=== PATIENT | female | born 2000 | race Caucasian/White ===

== ENCOUNTER 2019-06-22 01:52 | Inpatient (IN) ==
[2019-06-22 02:34] LABS: Bilirubin,Urine Negative (Negative); Blood,Urine Negative (Negative); Clarity,Urine Clear (Clear); Color,Urine Yellow (Yellow); Glucose,Urine (UA) Normal (Normal); Ketones,Urine Negative (Negative); Leukocyte Esterase,Urine Small (Negative); Nitrite,Urine Negative (Negative); Protein,Urine Negative (Neg-Trace); Specific Gravity,Urine > 1.030 (1.010-1.025); Urobilinogen,Urine Normal (Normal)
[2019-06-22 02:37] LABS: Bacteria,Urine Moderate per hpf (None-Few); Hyaline Casts,Urine None Seen per lpf (None-Few); Squamous Epithelial Cell,Urine Many per lpf (None-Few); WBC,Urine 15-30 per hpf (0-3)
[2019-06-22 02:44] LABS: Amphetamine Screen,Urine Negative ng/mL (Cutoff=1000); Barbiturate Screen,Urine Negative ng/mL (Cutoff=200); Benzodiazepines Screen,Urine Negative ng/mL (Cutoff=200); Cannabinoid Screen,Urine Negative ng/mL (Cutoff = 50); Cocaine Screen,Urine Negative ng/mL (Cutoff= 300); Opiate Screen,Urine Negative ng/mL (Cutoff=300); Phencyclidine Screen,Urine Negative ng/mL (Cutoff=25)
[2019-06-22 02:59] LABS: Basophils % 0.2 %; Eosinophils # 0.4 K/mcL (0.0-0.6); Eosinophils % 2.7 %; Hemoglobin 12.6 g/dL (11.5-15.4); Immature Granulocytes % 0.3 % (0-4); Immature Platelets 1.5 % (1.1-6.1); Lymphocytes # 2.5 K/mcL (0.6-4.6); Lymphocytes % 19.7 %; Mean Corpuscular HGB Conc 32.3 g/dL (31.6-35.5); Mean Corpuscular Hemoglobin 25.7 pg (28.0-33.3); Mean Corpuscular Volume 79.4 fL (83.0-100.0); Monocytes # 0.7 K/mcL (0.0-1.3); Monocytes % 5.2 %; Neutrophils # 9.2 K/mcL (1.6-8.9); Platelet Count 454 K/mcL (140-400); Red Blood Count 4.91 M/mcL (3.82-4.97); Red Cell Distribution Width 13.9 % (11.5-14.5); Segmented Neutrophils % 71.9 %; White Blood Count 12.8 K/mcL (4.3-11.1)
[2019-06-22 03:57] LABS: Acetaminophen < 10 mcg/mL (10-20); BUN/Creatinine Ratio 18 (6-26); Blood Urea Nitrogen 14 mg/dL (6-20); Calcium 9.7 mg/dL (8.6-10.3); Carbon Dioxide 24 mEq/L (23-29); Chloride 104 mEq/L (98-107); Ethanol < 10 mg/dL (Less than 10); Glucose 116 mg/dL (70-105); Osmolality,Calculated 281 (280-300); Potassium 3.8 mEq/L (3.5-5.1); Salicylate < 2.5 mg/dL (15.0-30.0); Sodium 135 mEq/L (136-145); eGFR For African Americans > 60; eGFR For Non-African Americans > 60
[2019-06-22] MEDS ORDERED: Haloperidol Lactate 5 MG/ML VIAL IM PRN (06:06)
[2019-06-22] MEDS ORDERED: MOM Conc 10 ML UD.LIQ PO PRN (06:06)
[2019-06-22] MEDS ORDERED: Mag Hydrox/Al Hydrox/Simeth 30 ML UDC PO PRN (06:06)
[2019-06-22] MEDS ORDERED: *HR* LORazepam 1 MG TABLET PO PRN (06:06)
[2019-06-22] MEDS ORDERED: Ibuprofen 400 MG TABLET PO PRN (06:06)
[2019-06-22] MEDS ORDERED: *HR* LORazepam 2 MG/ML VIAL IM PRN (06:06)
[2019-06-22 13:28] LABS: Thyroid Stimulating Hormone 4.782 mcIU/mL (0.340-5.600)
[2019-06-22 13:34] LABS: Triiodothyronine (T3) Total 1.33 ng/mL (0.87-1.78)
[2019-06-22] MEDS: hydrOXYzine pamoate 25 MG CAPSULE PO PRN (20:28)
[2019-06-22] MEDS: traZODone 50 MG TABLET PO PRN (20:28)
[2019-06-23] MEDS: hydrOXYzine pamoate 25 MG CAPSULE PO PRN (20:25)
[2019-06-23] MEDS: traZODone 50 MG TABLET PO PRN (20:26)
[2019-06-24] MEDS: BuPROPion XL (24 HR) 150 MG TABLET PO SCH (11:18)
[2019-06-24] MEDS ORDERED: Acetaminophen 325 MG TABLET PO ONE (18:19)
[2019-06-24] MEDS: hydrOXYzine pamoate 25 MG CAPSULE PO PRN (20:36)
[2019-06-24] MEDS: traZODone 50 MG TABLET PO PRN (20:36)
[2019-06-25] MEDS ORDERED: Levothyroxine 25 MCG TABLET PO SCH (06:30)
[2019-06-25] MEDS: BuPROPion XL (24 HR) 150 MG TABLET PO SCH (09:11)
[2019-06-25 09:30] VITALS: BP 111/69
== END 2019-06-25 11:50 | disposition home or self-care (01) | DRG 885 ==
LOC: EMEROOARM 01:52 → 1ANU 05:29
PROVIDERS: ADMIT Psychiatry & Neurology Psychiatry; ATTEND Psychiatry & Neurology Psychiatry